=== PATIENT | female | born 1950 | race Two or more races ===

== ENCOUNTER 2019-06-24 17:44 | Inpatient (IN) | payer OTHER ==
[~2019-06-24] VITALS: Ht 162.6 cm; Wt 69.8 kg
[2019-06-24 18:30] LABS: Basophils # (auto) 0.1 uL; Basophils % (auto) 0.5 % (0.0-2.0); Eosinophils # (auto) 0.1 uL; Eosinophils % (auto) 0.8 % (0.0-7.0); Hematocrit 42.9 % (36.0-46.0); Lymphocytes # (auto) 1.6 uL; Lymphocytes % (auto) 14.2 % (10.0-50.0); Mean Corpuscular Hemoglobin 26.8 pg (28.0-32.0); Mean Corpuscular Hgb Conc. 32.6 g/dL (32.0-36.0); Mean Corpuscular Volume 82.3 fL (80.0-100.0); Monocytes # (auto) 0.8 uL; Monocytes % (auto) 6.9 % (0.0-12.0); Neutrophils # (auto) 8.8 uL; Neutrophils % (auto) 77.6 % (37.0-80.0); Nucleated Red Blood Cells % 0.1 %; Platelet Count (auto) 322 10^3/uL (140-450); Red Blood Cells 5.22 10^6/uL (4.0-5.20); Red Cell Distribution Width 14.4 % (11.8-14.3); White Blood Cell 11.3 10^3/uL (4.4-10.8)
[2019-06-24 18:44] LABS: Albumin 2.7 g/dL (3.4-5.0); Potassium 4.1 mmol/L (3.5-5.1)
[2019-06-24 18:47] LABS: INR 1.06 (0.9-1.15); Partial Thromboplastin Time 24.2 sec (23.64-32.05)
[2019-06-24 18:53] LABS: BUN/Creatinine Ratio 32.9; Bilirubin, Total 1.2 mg/dL (0.2-1.0); Total Protein 6.6 g/dL (6.4-8.2)
[2019-06-24] MEDS ORDERED: HYDROmorphone HCL 2 MG/ML VL IV ONE (19:30)
[2019-06-24] MEDS ORDERED: ONDANSETRON HCL 4 MG/2 ML VIAL IV ONE (19:30)
[2019-06-24] MEDS ORDERED: SODIUM CHLORIDE 0.9% 1,000 ML IV ONE (20:15)
[2019-06-24] MEDS ORDERED: MORPHINE SULF INJ 2 MG/ML SYRINGE 1ML IV ONE (22:15)
[2019-06-25] MEDS ORDERED: IBUPROFEN 600 MG TAB PO PRN (01:00)
[2019-06-25] MEDS ORDERED: LORazepam 0.5 MG TAB PO PRN (01:00)
[2019-06-25] MEDS: ONDANSETRON HCL 4 MG/2 ML VIAL IV PRN ×4 (02:42→23:37)
[2019-06-25] MEDS: MORPHINE SULF INJ 2 MG/ML SYRINGE 1ML IV PRN ×6 (02:44→23:37)
[2019-06-25 02:55] VITALS: BP 148/101
[2019-06-25] MEDS: TEMAZEPAM 15 MG CAP PO PRN ×2 (03:15→21:30)
[2019-06-25 07:56] VITALS: BP 135/87
[2019-06-25 08:02] LABS: Eosinophils # (auto) 0.1 uL; Neutrophils # (auto) 8.9 uL; Red Cell Distribution Width 14.4 % (11.8-14.3)
[2019-06-25 08:04] LABS: Basophils # (auto) 0.1 uL; Basophils % (auto) 0.5 % (0.0-2.0); Hematocrit 39.7 % (36.0-46.0); Lymphocytes # (auto) 2.7 uL; Lymphocytes % (auto) 21.1 % (10.0-50.0); Mean Corpuscular Hgb Conc. 32.8 g/dL (32.0-36.0); Mean Corpuscular Volume 82.3 fL (80.0-100.0); Monocytes # (auto) 0.9 uL; Neutrophils % (auto) 70.4 % (37.0-80.0); Platelet Count (auto) 323 10^3/uL (140-450); Red Blood Cells 4.83 10^6/uL (4.0-5.20); White Blood Cell 12.7 10^3/uL (4.4-10.8)
[2019-06-25 08:22] LABS: BUN/Creatinine Ratio 32.9
[2019-06-25 08:30] VITALS: BP 135/53
[2019-06-25] MEDS: DOCUSATE SOD 100 MG CAP PO SCH ×2 (10:12→21:30)
[2019-06-25] MEDS: FUROSEMIDE 20 MG TAB PO SCH (10:16)
[2019-06-25 12:30] VITALS: BP 123/79
[2019-06-25 17:10] VITALS: BP 103/51
[2019-06-25 21:40] VITALS: BP 121/90
[2019-06-26] MEDS: ONDANSETRON HCL 4 MG/2 ML VIAL IV PRN (04:33)
[2019-06-26] MEDS: MORPHINE SULF INJ 2 MG/ML SYRINGE 1ML IV PRN ×3 (04:34→12:42)
[2019-06-26 05:00] VITALS: BP 114/66
[2019-06-26 09:00] VITALS: BP 118/69
[2019-06-26] MEDS ORDERED: HYDROmorphone HCL 2 MG/ML VL IV ONE (09:15)
[2019-06-26] MEDS: DOCUSATE SOD 100 MG CAP PO SCH (10:00)
[2019-06-26] MEDS: FUROSEMIDE 20 MG TAB PO SCH (10:00)
[2019-06-26 11:13] VITALS: BP 135/71
[2019-06-26 13:00] VITALS: BP 118/69
== END 2019-06-26 15:10 | disposition hospice, home (50) | DRG 281 ==
LOC: ER 17:44 → TELE 17:45 → TELE-WESTW 06-25 03:04
PROVIDERS: ADMIT Nurse Practitioner Family; ATTEND Internal Medicine Nephrology
PROC: 0W9G3ZZ Drainage of Peritoneal Cavity, Percutaneous Approach (ICD-10-PCS; principal; 2019-06-25)
DX: C25.9 Malignant neoplasm of pancreas, unspecified (principal); N17.9 Acute kidney failure, unspecified; E44.0 Moderate protein-calorie malnutrition; R18.8 Other ascites; E87.1 Hypo-osmolality and hyponatremia; N13.4 Hydroureter; E88.09 Other disorders of plasma-protein metabolism, not elsewhere classified; K74.60 Unspecified cirrhosis of liver; Z66 Do not resuscitate; E46 Unspecified protein-calorie malnutrition; R73.9 Hyperglycemia, unspecified; I10 Essential (primary) hypertension; J98.11 Atelectasis; Z51.5 Encounter for palliative care; Z85.07 Personal history of malignant neoplasm of pancreas; Z68.26 Body mass index [BMI] 26.0-26.9, adult
CPT/HCPCS: 36415; 49083; 74176; 76705; 76942; 80048; 80053; 83036; 83880; 85025; 85610; 85730; 87205; 89051; 96361; 96374; 96375; G0378; J2405